=== PATIENT | female | born 1970 | race Caucasian/White ===

== ENCOUNTER 2016-08-10 15:20 | Outpatient (CLI) | payer OTHER | END 2016-08-10 15:21 | disposition home or self-care (01) | DX: Z12.31 Encounter for screening mammogram for malignant neoplasm of breast (principal) ==

== ENCOUNTER 2016-09-24 16:30 | Outpatient (CLI) | payer OTHER | END 2016-09-24 16:31 | disposition home or self-care (01) | DX: R10.2 Pelvic and perineal pain (principal) ==

== ENCOUNTER 2017-05-21 08:02 | Outpatient (CLI) | payer OTHER ==
[2017-05-21 12:57] LABS: BASOPHILS % (AUTO) 0.6 %; EOSINOPHILS # (AUTO) 0.2 10^3/uL (0.0-0.7); EOSINOPHILS % (AUTO) 2.6 %; HCT - HEMATOCRIT 33.3 % (37.0-47.0); HGB - HEMOGLOBIN 10.9 g/dL (12.0-16.0); LYMPHOCYTES # (AUTO) 2.2 10^3/uL (1.5-3.5); LYMPHOCYTES % (AUTO) 31.9 %; MEAN CORPUSCULAR HEMOGLOBIN 24.3 pg (27.0-31.0); MEAN CORPUSCULAR HGB CONC 32.6 g/dL (32.0-36.0); MEAN CORPUSCULAR VOLUME 74.5 fL (81.0-99.0); MEAN PLATELET VOLUME 7.4 fL (7.9-10.8); MONOCYTES # (AUTO) 0.5 10^3/uL (0.0-1.0); NEUTROPHILS # (AUTO) 3.8 10^3/uL (1.5-6.6); NEUTROPHILS % (AUTO) 56.9 %; RED BLOOD COUNT 4.47 10^6/uL (4.20-5.40); RED CELL DISTRIBUTION WIDTH 15.2 % (12.0-15.0); UNCORRECTED WHITE BLOOD COUNT 6.7 x10^3/uL; WHITE BLOOD COUNT 6.7 x10^3/uL (4.8-10.8)
[2017-05-21 13:23] LABS: ALBUMIN/GLOBULIN RATIO 1.3 (1.0-2.2); BILIRUBIN,TOTAL 0.3 mg/dL (0.2-1.0); BUN - BLOOD UREA NITROGEN 15 mg/dL (6-20); CALCIUM 9.3 mg/dL (8.5-10.3); CARBON DIOXIDE - CO2 26 mmol/L (21-32); CHLORIDE 103 mmol/L (101-111); CHOL/HDL RATIO 3.8 (<4.4); CHOLESTEROL 169 mg/dL; CREATININE 0.8 mg/dL (0.4-1.0); GFR - MDRD 77 (>89); GLUCOSE 102 mg/dL (70-100); HDL CHOLESTEROL 44 mg/dL; LDL/HDL RATIO 2.4 (<4.4); POTASSIUM 3.9 mmol/L (3.5-5.0); SODIUM 137 mmol/L (135-145); TRIGLYCERIDES 106 mg/dL; VLDL CHOLESTEROL 21 mg/dL
[2017-05-21 13:36] LABS: HEMOGLOBIN A1C 0.4 g/dL
== END 2017-05-21 08:03 | disposition home or self-care (01) ==
LOC: LAB.WCP 08:02
PROVIDERS: ATTEND Family Medicine
DX: Z00.00 Encounter for general adult medical examination without abnormal findings (principal)
CPT/HCPCS: 36415; 80050; 80061; 83036

== ENCOUNTER 2017-06-14 14:50 | Outpatient (CLI) | payer OTHER | END 2017-06-14 14:51 | disposition home or self-care (01) | LOC: LAB.WCP 14:50 | PROVIDERS: ATTEND Family Medicine | DX: B97.89 Other viral agents as the cause of diseases classified elsewhere (principal) | CPT/HCPCS: 87275; 87276 ==

== ENCOUNTER 2017-08-30 16:45 | Outpatient (CLI) | payer OTHER ==
--- NOTE | 2017-08-31 16:28 | Mammography Report ---
DATE OF SERVICE: 08/30/2017 DIGITAL SCREENING MAMMOGRAM: 08/31/2017 CLINICAL INDICATION: A 46-year-old for screening. COMPARISON: 08/11/2017, 06/08/2017, 05/06/2017, 04/05/2017. TECHNIQUE: Routine CC and MLO projections were obtained of the breasts. FINDINGS: Parenchymal tissue within the breasts is predominantly fatty replaced. There are no dominant masses, suspicious microcalcifications, or secondary signs of malignancy. In comparison to the previous studies, there are no significant changes. IMPRESSION: NO MAMMOGRAPHIC EVIDENCE OF MALIGNANCY. NO SIGNIFICANT INTERVAL CHANGES. RECOMMENDATION: SCREENING MAMMOGRAPHY IS RECOMMENDED ANNUALLY. BIRADS CATEGORY 1 - NEGATIVE. STANDARD QUALIFYING STATEMENTS: 1. This examination was reviewed with the aid of Computed-Aided Detection (CAD). 2. A negative or benign imaging report should not delay biopsy if clinically suspicious findings are present. Consider surgical consultation if warranted. More than 5% of cancers are not identified by imaging. 3. Dense breasts may obscure an underlying neoplasm. TD: 08/31/2017 16:27
== END 2017-08-30 16:46 | disposition home or self-care (01) ==
LOC: DI 16:45
PROVIDERS: ATTEND Family Medicine
DX: Z12.31 Encounter for screening mammogram for malignant neoplasm of breast (principal)
CPT/HCPCS: 77067

== ENCOUNTER 2018-10-27 08:00 | Outpatient (CLI) | payer OTHER | END 2018-10-27 23:59 | disposition home or self-care (01) | LOC: LAB.R 08:00 | PROVIDERS: ATTEND Family Medicine | DX: R31.9 Hematuria, unspecified (principal) | CPT/HCPCS: 87086 ==

== ENCOUNTER 2018-10-28 00:31 | Outpatient (CLI) | payer OTHER ==
--- NOTE | 2018-10-28 02:37 | Ultrasound Report ---
Reason: ABDOMINAL PAIN,RIGHT UPPER QUADRANT Procedure Date: 10/28/2018 Accession Number: [id number] / [id number] Procedure: US - Abdomen Complete CPT Code: FULL RESULT: EXAM: ABDOMEN ULTRASOUND EXAM DATE: 10/28/2018 02:01 AM. CLINICAL HISTORY: ABDOMINAL PAIN,RIGHT UPPER QUADRANT. COMPARISON: None. TECHNIQUE: Real-time scanning was performed with static images obtained. FINDINGS: Liver: There is increased echogenicity of the liver compatible with fatty infiltration. Several cysts are seen within the liver the largest in the left lobe measuring 19 mm x 18 mm x 17 mm. The largest cyst in the right lobe measures 41 mm x 30 mm x 44 mm. There may be a septation within this cyst. 17.6 cm. Main portal vein flow: Hepatopetal. Gallbladder: There is cholelithiasis. The wall thickness measures 2.1 mm. Biliary System: Common bile duct measures 4.3 mm. No intrahepatic or extrahepatic ductal dilatation. Pancreas: Limited visualization of the pancreas. Kidneys: Right: 10.1 cm longitudinally. Normal. No contour-deforming mass, stones, or hydronephrosis. Left: 11.2 cm longitudinally. Normal. No contour-deforming mass, stones, or hydronephrosis. Spleen: 12.3 x 12.7 x 4.6 cm. Volume 376 mL. Echogenic foci seen within the spleen possibly from atherosclerotic calcification within vessels. Findings may also be from calcified granulomas. Aorta and Inferior Vena Cava: Unremarkable. Other: None. IMPRESSION: 1. Diffuse fatty infiltration of the liver. Few hepatic cysts. 2. Cholelithiasis without evidence for cholecystitis. RADIA The call report notification system was initiated by Dr. Kennedy Amos at 02:35 AM on 10/28/2018.
== END 2018-10-28 00:32 | disposition home or self-care (01) ==
LOC: DI 00:31
PROVIDERS: ATTEND Family Medicine
DX: K80.20 Calculus of gallbladder without cholecystitis without obstruction (principal); K76.0 Fatty (change of) liver, not elsewhere classified
CPT/HCPCS: 76700

== ENCOUNTER 2018-11-11 18:15 | Emergency (ER) | payer OTHER ==
[2018-11-11 18:57] LABS: BASOPHILS % (AUTO) 0.4 %; EOSINOPHILS # (AUTO) 0.1 10^3/uL (0.0-0.7); EOSINOPHILS % (AUTO) 0.8 %; HGB - HEMOGLOBIN 12.8 g/dL (12.0-16.0); LYMPHOCYTES # (AUTO) 1.5 10^3/uL (1.5-3.5); LYMPHOCYTES % (AUTO) 19.8 %; MEAN CORPUSCULAR HEMOGLOBIN 25.9 pg (27.0-31.0); MEAN CORPUSCULAR HGB CONC 32.9 g/dL (32.0-36.0); MEAN CORPUSCULAR VOLUME 78.8 fL (81.0-99.0); MEAN PLATELET VOLUME 7.4 fL (7.9-10.8); MONOCYTES # (AUTO) 0.6 10^3/uL (0.0-1.0); MONOCYTES % (AUTO) 7.8 %; NEUTROPHILS # (AUTO) 5.4 10^3/uL (1.5-6.6); NEUTROPHILS % (AUTO) 71.2 %; PLT - PLATELET COUNT 341 10^3/uL (130-450); RED BLOOD COUNT 4.94 10^6/uL (4.20-5.40); RED CELL DISTRIBUTION WIDTH 15.9 % (12.0-15.0); WHITE BLOOD COUNT 7.6 x10^3/uL (4.8-10.8)
[2018-11-11 19:08] LABS: ALBUMIN 4.2 g/dL (3.2-5.5); ALBUMIN/GLOBULIN RATIO 1.1 (1.0-2.2); BILIRUBIN,TOTAL 0.6 mg/dL (0.2-1.0); CALCIUM 9.4 mg/dL (8.5-10.3); CREATININE 0.7 mg/dL (0.4-1.0); TOTAL PROTEIN 7.9 g/dL (6.7-8.2)
--- NOTE | 2018-11-11 19:15 | ED Physician Documentation ---
PD HPI ABD PAIN - Stated complaint Stated Complaint: ABD PX - Chief complaint Chief Complaint: Abd Pain - History obtained from History obtained from: Patient - History of Present Illness Timing - onset: How many weeks ago (2-3) Timing - duration: Weeks (She has had a few weeks of intermittent right upper quadrant abdominal pain more so after eating. It was localized to the right upper quadrant and radiating into the back. She is tender in the area. She has nausea associated with it. She is seen in the office and had a outpatient ultrasound showing gallstones but no signs of wall thickening. She had a surgical consultation referred and she has not yet gotten to the make an appointment. She is waiting on the referral still. Last several days she has had more consistent pain in the right upper quadrant. It was associated with nausea and several episodes of vomiting. She states she had a little loose stool diarrhea 2 days ago and then normal bowel movement today. The pain is stayed localized in that area. She states she had a fever yesterday. She denies any head cold symptoms.) Timing - details: Still present (more consistent pain the past few days), Intermittant Quality: Aching, Sharp, Pain Location: RUQ Radiation: Right flank Improved by: Meds. No: Eating Worsened by: Eating, Moving, Palpation. No: Breathing Associated symptoms: Fever (yesterday), Nausea, Vomiting (Several times in the past few days), Diarrhea (A few loose bowel movements in the last few days), Dysuria (Chronically due to interstitial cystitis without any change in symptoms), Loss of appetite. No: Hematemesis, Constipation, Melena, Hematuria Similar symptoms before: Has not had sx before Recently seen: Clinic (Seen in the clinic by Dr. Brizuela and had outpatient ultrasound showing gallstones) Review of Systems Constitutional: reports: Fever (subjective yesterday and some chills the past 2 days.) Nose: denies: Rhinorrhea / runny nose, Congestion Throat: denies: Sore throat Cardiac: denies: Chest pain / pressure, Palpitations Respiratory: denies: Cough GI: reports: Abdominal Pain (RUQ consistently), Nausea, Vomiting. denies: Abdominal Swelling, Hematemesis, Bloody / black stool : reports: Dysuria (chronic) Skin: denies: Rash, Lesions Neurologic: reports: Generalized weakness (today due to poor intake and feeling dehydrated) PD PAST MEDICAL HISTORY - Past Medical History Past Medical History: Yes Cardiovascular: None Respiratory: None GI: GERD : Other (interstitial cystitis) Psych: Anxiety Other Past Medical History: interstitial cystitis. - Past Surgical History Past Surgical History: Yes /[employer]: section, Oophrectomy HEENT: Tonsil/Adenoidectomy - Present Medications Home Medications: Ambulatory Orders Medication Instructions Recorded Confirmed Esomeprazole Magnesium [Nexium] 20 mg PO BID 10/15/13 02/10/15 Hydrocodone/Acetaminophen 1 - 2 each PO Q6H PRN #15 tablet 09/19/14 02/10/15 [Hydrocodon-Acetaminophen 5-325] Phenazopyridine HCl [Pyridium] 200 mg PO TID 09/19/14 02/10/15 Cephalexin [Keflex] 500 mg PO Q6HR 10 Days capsule 02/10/15 Ondansetron Odt [Zofran] 4 mg TL Q6H PRN #10 tablet 02/10/15 oxyCODONE/ACET 5/325 [Percocet 5 1 each PO Q4-6H PRN #15 tablet 02/10/15 mg/325 mg] Nitrofurantoin Monohyd/M-Cryst 100 mg PO BID 5 Days capsule 09/09/15 [Macrobid 100 mg Capsule] oxyCODONE/ACET 5/325 [Percocet 5 1 - 2 each PO Q6H PRN #12 tablet 09/09/15 mg/325 mg] Ondansetron Odt [Zofran] 4 mg TL Q6H PRN #10 tablet 11/11/18 Oxycodone HCl/Acetaminophen 1 each PO Q6H PRN #15 tablet 11/11/18 [Percocet 5-325 mg Tablet] - Allergies Allergies/Adverse Reactions: Allergies Allergy/AdvReac Type Severity Reaction Status Date / Time No Known Drug Allergies Allergy Verified 11/11/18 18:32 - Living Situation Living Arrangement: reports: At home - Social History Does the pt smoke?: No Smoking Status: Never smoker Does the pt drink ETOH?: Yes Does the pt have substance abuse?: No - Family History Family history: reports: Non contributory - Immunizations Immunizations are current?: Yes - POLST Patient has POLST: No PD ED PE NORMAL - Vitals Vital signs reviewed: Yes - General General: Alert and oriented X 3, Well developed/nourished, Other (She does appear uncomfortable but is able to interact pleasantly.) - HEENT HEENT: PERRL (nonicteric), Ears normal, Pharynx benign. No: Moist mucous membranes - Neck Neck: Supple, no meningeal sign, No adenopathy - Cardiac Cardiac: RRR, No murmur - Respiratory Respiratory: Clear bilaterally - Abdomen Abdomen: Soft, Non distended, Other (Somewhat diminished bowel sounds. She is moderately to significantly tender in the right upper quadrant with localized guarding. There is no percussion tenderness in that area. There is increased pain with deep breathing as I hold the right upper quadrant. There is some referred tenderness to the right side from the left upper quadrant palpation. The lower abdomen is not tender. There is no CVA tenderness.) - Female Female : Deferred - Rectal Rectal: Deferred - Back Back: No CVA TTP - Derm Derm: Normal color, Warm and dry, No rash - Extremities Extremities: No tenderness to palpate, No edema, No calf tenderness / cord - Neuro Neuro: Alert and oriented X 3, No motor deficit, Normal speech Results - Vitals Vitals: Vital Signs - 24 hr 11/11/18 11/11/18 18:28 20:52 Temperature 36.4 C L 36.2 C L Heart Rate 80 79 Respiratory 18 14 Rate Blood Pressure 134/77 H 164/87 H O2 Saturation 97 98 Oxygen O2 Source Room air - Labs Labs: Laboratory Tests 11/11/18 11/11/18 11/11/18 18:48 18:48 21:20 WBC 7.6 RBC 4.94 Hgb 12.8 Hct 38.9 MCV 78.8 L MCH 25.9 L MCHC 32.9 RDW 15.9 H Plt Count 341 MPV 7.4 L Neut # (Auto) 5.4 Lymph # (Auto) 1.5 [place] # (Auto) 0.6 Eos # (Auto) 0.1 Baso # (Auto) 0.0 Absolute Nucleated RBC 0.00 Nucleated RBC % 0.0 Sodium 139 Potassium 3.7 Chloride 100 L Carbon Dioxide 28 Anion Gap 11.0 BUN 15 Creatinine 0.7 Estimated GFR (MDRD) 90 Glucose 101 H Calcium 9.4 Total Bilirubin 0.6 AST 29 ALT 36 Alkaline Phosphatase 68 Total Protein 7.9 Albumin 4.2 Globulin 3.7 Albumin/Globulin Ratio 1.1 Lipase 31 Urine Color YELLOW Urine Clarity CLEAR Urine pH 5.0 Ur Specific [place] 1.025 Urine Protein NEGATIVE Urine Glucose (UA) NEGATIVE Urine Ketones 15 H Urine Occult Blood NEGATIVE Urine Nitrite NEGATIVE Urine Bilirubin NEGATIVE Urine Urobilinogen 0.2 (NORMAL) Ur Leukocyte Esterase NEGATIVE Ur Microscopic Review NOT INDICATED Urine Culture Comments NOT INDICATED - Rads (name of study) RUQ U/S Radiology: Prelim report reviewed (Gallstones are noted without any gallbladder wall thickening or pericholecystic fluid. The common bile duct is normal sized.), See rad report PD MEDICAL DECISION MAKING - ED course Complexity details: considered differential (She has been having intermittent right upper quadrant pain after eating for several weeks. He has been more consistent the last few days associated with nausea and vomiting and some loose stool. She states she was feverish yesterday and chills last couple of days. She is tender in the right upper quadrant and her labs otherwise are normal. This does sound consistent with biliary colic. There is no acute cholecystitis seen. Consultation with surgery by phone and Dr. Stanton will come in to see the patient and discuss options.), d/w patient Departure - Departure Disposition: 01 Home, Self Care Clinical Impression: Cholecystitis Abdominal pain Qualifiers: Abdominal location: right upper quadrant Qualified Code(s): R10.11 - Right upper quadrant pain Cholelithiasis Qualifiers: Cholelithiasis location: gallbladder Cholecystitis presence: without cholecystitis Biliary obstruction: without biliary obstruction Qualified Code(s): K80.20 - Calculus of gallbladder without cholecystitis without obstruction Condition: Stable Record reviewed to determine appropriate education?: Yes Instructions: ED Gallstone W Biliary Colic Follow-Up: Karmen Draper MD [Primary Care Provider] - Juan Antonio Stanton MD [Provider Admit Priv/Credential] - Prescriptions: Ondansetron Odt [Zofran] 4 mg TL Q6H PRN #10 tablet PRN Reason: Nausea / Vomiting Oxycodone HCl/Acetaminophen [Percocet 5-325 mg Tablet] 1 each PO Q6H PRN #15 tablet PRN Reason: pain Comments: Stay well-hydrated. Avoid fatty foods and mostly eat bland diet the next few days. Use Tylenol or ibuprofen if needed for mild pains. Ondansetron if needed for nausea. Add oxycodone if needed for worse pain. Follow-up with Dr. Stanton Wednesday in the clinic; call the office first thing in the morning to set an appointment time and that them know that you were seen in the ER and Dr. Stanton definitely wants to see you on Wednesday. Return sooner if worsening symptoms.
[2018-11-11] MEDS ORDERED: HYDROmorphone 1 MG/ML CARPUJECT IVP STA ×2 (19:23→22:02)
[2018-11-11] MEDS ORDERED: ONDANSETRON 4 MG/2 ML VIAL IVP STA (19:23)
[2018-11-11] MEDS ORDERED: SODIUM CHLORIDE 0.9% 1,000 ML IV ONE (19:23)
--- NOTE | 2018-11-11 20:51 | Ultrasound Report ---
Reason: gallstones; worse pain with fever for 2 days Procedure Date: 11/11/2018 Accession Number: [id number] / [id number] Procedure: US - Abdomen Limited CPT Code: FULL RESULT: EXAM: ABDOMEN ULTRASOUND LIMITED, RUQ EXAM DATE: 11/11/2018 08:34 PM. CLINICAL HISTORY: Cholelithiasis. COMPARISON: None. TECHNIQUE: Real-time scanning was performed with static images obtained. FINDINGS: Liver: The liver is diffusely echogenic in appearance suggesting fibrofatty infiltration. A few scattered cysts are seen measuring up to 4.5 cm in the right hepatic lobe and 2.0 cm and the left hepatic lobe No suspicious lesions or masses are identified. The liver is enlarged measuring 21.4 cm. Main portal vein flow: Hepatopetal. Gallbladder: Multiple gallstones are seen in the gallbladder. There is no gallbladder wall thickening, pericholecystic fluid, or positive sonographic Sims sign. Biliary System: CBD measures 3 mm. No intrahepatic or extrahepatic ductal dilatation. Other: None. IMPRESSION: 1. Cholelithiasis without evidence of cholecystitis or biliary dilation. 2. Mild hepatomegaly, fatty change of the liver, and scattered simple appearing liver cyst. RADIA
[2018-11-11 21:27] LABS: BILIRUBIN,URINE NEGATIVE (NEGATIVE); CLARITY,URINE CLEAR (CLEAR); GLUCOSE, URINE (UA) NEGATIVE (NEGATIVE); KETONES,URINE (UA) 15 mg/dL (NEGATIVE); LEUKOCYTE ESTERASE, URINE NEGATIVE (NEGATIVE); NITRITE,URINE NEGATIVE (NEGATIVE); OCCULT BLOOD,URINE NEGATIVE (NEGATIVE); PROTEIN,URINE NEGATIVE (NEGATIVE); UROBILINOGEN,URINE 0.2 (NORMAL) E.U./dL (NORMAL)
[2018-11-11] MEDS ORDERED: ONDANSETRON ODT 4 MG Prepack 2 TL PRN (22:02)
[2018-11-11] MEDS ORDERED: oxyCODONE/ACET 5/325 Prepack 4 PO STA (22:02)
[2018-11-11] MEDS ORDERED: KETOROLAC 15 MG/ML VIAL IVP STA (22:02)
[2018-11-11 22:29] VITALS: BP 153/84
== END 2018-11-11 22:36 | disposition home or self-care (01) ==
LOC: ED 18:15
DX: K80.10 Calculus of gallbladder with chronic cholecystitis without obstruction (principal)
CPT/HCPCS: 36415; 76705; 80053; 81003; 83690; 85025; 96361; 96374; 96376; 99283; 99284; J1170; 81001; 87086

== ENCOUNTER 2018-11-18 08:45 | Day surgery (SDC) | payer OTHER ==
--- NOTE | 2018-11-18 08:42 | ANESTHESIA ---
Pre-Anesthesia VS, & Labs - Diagnosis biliary cholic - Procedure Laparoscopic cholecystectomy Height 5 ft 6 in Body Mass Index 37.5 - NPO >8 hours - Is Patient ?: No - Lab Results Lab results reviewed: Yes Home Medications and Allergies Home Medications: Ambulatory Orders Alprazolam [Xanax] 0.25 mg PO DAILY PRN 11/15/18 Ibuprofen [Addaprin] 2 - 3 tab PO Q6H PRN 11/15/18 Nortriptyline HCl 100 mg PO QPM 11/15/18 Rabeprazole Sodium [Aciphex] 20 mg PO DAILY 11/15/18 Phenazopyridine HCl [Pyridium] 200 mg PO DAILY PRN 09/19/14 Alprazolam [Xanax] 0.25 mg PO DAILY PRN 11/15/18 Ibuprofen [Addaprin] 2 - 3 tab PO Q6H PRN 11/15/18 Nortriptyline HCl 100 mg PO QPM 11/15/18 Rabeprazole Sodium [Aciphex] 20 mg PO DAILY 11/15/18 Allergies/Adverse Reactions: Allergies Allergy/AdvReac Type Severity Reaction Status Date / Time ketamine AdvReac Hallucinati Verified 11/15/18 10:45 ons Anes History & Medical History - Anesthetic History Anesthesia Complications: reports: No previous complications Family history of Anesthesia Complications: Denies Family history of Malignant Hyperthermia: Denies - Medical History Cardiovascular: reports: None Pulmonary: reports: None Gastrointestinal: reports: GERD, Hiatal hernia, Cholelithiasis Urinary: reports: Other Musculoskeletal: reports: Scoliosis Endocrine/Autoimmune: reports: None Skin: reports: None Smoking Status: Never smoker - Surgical History Eyes Ears Nose Throat (EENT): Tonsil/Adenoidectomy Urologic: Bladder surgery Gynecologic: section, Tubal ligation, Oophrectomy Exam General: Alert, Oriented x3, Cooperative Dental: WNL Mouth Openin Fingerbreadth Neck Mobility: Normal Mallampati classification: II Thyromental Distance: 4-6 cm Respiratory: Lungs clear, Normal breath sounds, No respiratory distress Cardiovascular: Regular rate Neurological: Normal speech Mental/Cognitive Status: Alert/Oriented X3, Normal for patient Cognitive Status: Within normal limits Plan Anesthesia Type: General Consent for Procedure(s) Verified and Reviewed: Yes Code Status: Attempt Resuscitation ASA classification: 2-Mild systemic disease Is this case an emergency?: No
[~2018-11-18 08:45] MED LIST: BUPIVACAINE 0.25%-EPI 1:200000 PF 30 ML VIAL ONE
[2018-11-18] MEDS ORDERED: LACTATED RINGERS 1,000 ML IV ONE ×2 (09:13→11:16)
[2018-11-18 09:16] LABS: HCG UR QUAL NEGATIVE
[2018-11-18] MEDS ORDERED: ceFAZolin 2 GM/50 ML 2 GM/50 ML BAG IV ONE ×2 (09:21→10:33)
[2018-11-18] MEDS ORDERED: BUPIVACAINE 0.25%-EPI 1:200000 PF 30 ML VIAL SUBQ ONE (10:16)
[2018-11-18] MEDS ORDERED: ONDANSETRON 4 MG/2 ML VIAL IVP ONE (10:33)
[2018-11-18] MEDS ORDERED: GLYCOPYRROLATE 1 MG/5 ML VIAL IVP ONE (10:33)
[2018-11-18] MEDS ORDERED: NEOSTIGMINE 1 MG/1 ML 10 ML MDV IVP ONE (10:33)
[2018-11-18] MEDS ORDERED: LIDOCAINE-MPF 2% 5 ML VIAL IM ONE (10:33)
[2018-11-18] MEDS ORDERED: PROPOFOL 200 MG/20 ML VIAL IVP ONE (10:33)
[2018-11-18] MEDS ORDERED: ACETAMINOPHEN 1,000 MG/100 ML 100 ML IV ONE (10:33)
[2018-11-18] MEDS ORDERED: fentaNYL 100 MCG/2 ML VIAL IVP ONE (10:33)
[2018-11-18] MEDS ORDERED: KETOROLAC 30 MG/ML VIAL IVP ONE (10:33)
[2018-11-18] MEDS ORDERED: ROCURONIUM 50 MG/5 ML VIAL IVP ONE (10:33)
[2018-11-18] MEDS ORDERED: HYDROcod/ACETAM 5/325 MG TABLET PO PRN (11:01)
[2018-11-18] MEDS ORDERED: PROMETHAZINE 25 MG/1 ML VIAL ONE (11:17)
[2018-11-18] MEDS ORDERED: SCOPOLAMINE PATCH TOP ONE (11:51)
[2018-11-18] MEDS ORDERED: DEXAMETHASONE 4 MG/ML VIAL ONE (11:51)
[2018-11-18] MEDS ORDERED: HYDROcod/ACETAM 5/325 MG TABLET ONE (12:44)
[2018-11-18 13:02] VITALS: BP 118/84
--- NOTE | 2018-11-20 08:07 | OPERATIVE REPORT ---
DATE OF SERVICE: 11/18/2018 Physician: Juan Antonio Stanton MD SURGEON: Juan Antonio Stanton MD PREOPERATIVE DIAGNOSIS: Symptomatic cholelithiasis. POSTOPERATIVE DIAGNOSIS: Symptomatic cholelithiasis. PROCEDURE PERFORMED: Laparoscopic cholecystectomy. ANESTHESIA: General. INDICATIONS: Patient is a 47-year-old woman who presented to clinic after an ER visit prompted by ri t upper quadrant pain. She was diagnosed with symptomatic cholelithiasis. Patient requested gallb ladder removal to prevent further episodes. PROCEDURE IN DETAIL: The risks and benefits were explained to the patient, and she agreed with the p rocedure. She was taken to the operating room, placed under general anesthesia, and intubated. The abdomen was prepped and draped. A timeout was performed; everyone in the room agreed with the proced ure. We began by making a 12 mm supraumbilical incision. We carried this down into the peritoneal cavity, secured a Priscila trocar in the incision, and insufflated the abdomen to 15 mmHg. We inserted three more 5 mm trocars under vision of the camera, one below the xiphoid process and two below the right c ostal margin. The gallbladder was identified and found to be without sign of inflammation; however, it was moderately distended with palpable gallstones. The gallbladder was grasped and retracted towa rds the head. The fundus was dissected until the critical view was obtained. The cystic duct and ar deysi were doubly clipped and ligated. The gallbladder was then removed off the liver bed using monop olar electricity. The gallbladder was not perforated, and there was no residual bleeding after remov al. The right upper quadrant was then lavaged, clean and dry. The gallbladder was removed and sent to pathology. All four trocars were removed under vision in the camera. The umbilical port site was closed using 0 Vicryl stitch in the fascia. All four incisions were closed after infusing with 30 mL of 0.25% Jeffrey dhara. They were then closed using 4-0 Monocryl and Dermabond. This terminated the procedure. Arron tate tolerated it well. She was extubated in the operating room and taken to recovery in stable condit ion. INSTRUMENT/LAP COUNTS: Correct. SPECIMENS: Gallbladder. COMPLICATIONS: None. PLAN: To go home later today. TD: 11/18/2018 10:59
== END 2018-11-18 08:46 | disposition home or self-care (01) ==
LOC: SDS 08:45
PROVIDERS: ATTEND Surgery
PROC: 0FT44ZZ Resection of Gallbladder, Percutaneous Endoscopic Approach (ICD-10-PCS; principal; 2018-11-18 10:00)
DX: K80.20 Calculus of gallbladder without cholecystitis without obstruction (principal); K21.9 Gastro-esophageal reflux disease without esophagitis; K44.9 Diaphragmatic hernia without obstruction or gangrene; M41.9 Scoliosis, unspecified; N30.10 Interstitial cystitis (chronic) without hematuria; F41.9 Anxiety disorder, unspecified; Z79.891 Long term (current) use of opiate analgesic; Z79.1 Long term (current) use of non-steroidal anti-inflammatories (NSAID)
CPT/HCPCS: 47562; 81025; A9270; J0131; J0690; J3490; J7120

== ENCOUNTER 2019-09-04 15:30 | Outpatient (CLI) | payer OTHER | END 2019-09-04 23:59 | disposition home or self-care (01) | LOC: LAB.R 15:30 | PROVIDERS: ATTEND Physician Assistant Medical | DX: R30.0 Dysuria (principal) | CPT/HCPCS: 87086; 87181 ==

== ENCOUNTER 2019-10-03 08:00 | Outpatient (CLI) | payer OTHER | END 2019-10-03 23:59 | disposition home or self-care (01) | LOC: LAB.R 08:00 | PROVIDERS: ATTEND Physician Assistant Medical | DX: Z79.891 Long term (current) use of opiate analgesic (principal) | CPT/HCPCS: 80361; 80365; 81599 ==

== ENCOUNTER 2019-11-09 07:00 | Outpatient (CLI) | payer OTHER ==
[2019-11-09 11:56] LABS: BASOPHILS % (AUTO) 0.5 %; EOSINOPHILS # (AUTO) 0.1 10^3/uL (0.0-0.7); EOSINOPHILS % (AUTO) 1.9 %; HGB - HEMOGLOBIN 12.9 g/dL (12.0-16.0); LYMPHOCYTES # (AUTO) 2.1 10^3/uL (1.5-3.5); LYMPHOCYTES % (AUTO) 34.5 %; MEAN CORPUSCULAR HEMOGLOBIN 27.7 pg (27.0-31.0); MEAN CORPUSCULAR HGB CONC 32.1 g/dL (32.0-36.0); MEAN CORPUSCULAR VOLUME 86.5 fL (81.0-99.0); MEAN PLATELET VOLUME 9.4 fL (7.9-10.8); MONOCYTES # (AUTO) 0.5 10^3/uL (0.0-1.0); MONOCYTES % (AUTO) 7.6 %; NEUTROPHILS # (AUTO) 3.4 10^3/uL (1.5-6.6); PLT - PLATELET COUNT 317 10^3/uL (130-450); RED BLOOD COUNT 4.65 10^6/uL (4.20-5.40); WHITE BLOOD COUNT 6.2 x10^3/uL (4.8-10.8)
[2019-11-09 12:16] LABS: ALBUMIN/GLOBULIN RATIO 1.1 (1.0-2.2); ALKALINE PHOSPHATASE 56 IU/L (42-121); ALT ALANINE AMINOTRANSFERASE 24 IU/L (10-60); AST ASPARTATE AMINOTRANSFERASE 23 IU/L (10-42); BILIRUBIN,TOTAL 0.6 mg/dL (0.2-1.0); BUN - BLOOD UREA NITROGEN 14 mg/dL (6-20); CALCIUM 8.9 mg/dL (8.5-10.3); CARBON DIOXIDE - CO2 28 mmol/L (21-32); CHLORIDE 105 mmol/L (101-111); CHOL/HDL RATIO 3.7 (<4.4); CHOLESTEROL 218 mg/dL; CREATININE 0.7 mg/dL (0.4-1.0); GLUCOSE 101 mg/dL (70-100); HDL CHOLESTEROL 59 mg/dL; LDL CHOLESTEROL,CALCULATED 134 mg/dL; LDL/HDL RATIO 2.3 (<4.4); SODIUM 138 mmol/L (135-145); TOTAL PROTEIN 7.5 g/dL (6.7-8.2); VLDL CHOLESTEROL 25 mg/dL
[2019-11-09 13:14] LABS: HB2 TOTAL 13.6 g/dL; HEMOGLOBIN A1C 0.44 g/dL; HEMOGLOBIN A1C % 5.1 % (4.6-6.2)
== END 2019-11-09 23:59 | disposition home or self-care (01) ==
LOC: LAB.WCP 07:00
PROVIDERS: ATTEND Physician Assistant Medical
DX: Z00.00 Encounter for general adult medical examination without abnormal findings (principal); E74.39 Other disorders of intestinal carbohydrate absorption; D50.9 Iron deficiency anemia, unspecified
CPT/HCPCS: 36415; 80053; 80061; 83036; 83721; 85025

== ENCOUNTER 2020-02-20 15:27 | Emergency (ER) | payer OTHER ==
[2020-02-20 16:03] LABS: GLUCOSE, URINE (UA) 250 mg/dL (NEGATIVE); KETONES,URINE (UA) TRACE mg/dL (NEGATIVE); LEUKOCYTE ESTERASE, URINE MODERATE (NEGATIVE); NITRITE,URINE POSITIVE (NEGATIVE); OCCULT BLOOD,URINE MODERATE (NEGATIVE); PROTEIN,URINE >=300 mg/dL (NEGATIVE); UROBILINOGEN,URINE >=8.0 E.U./dL (NORMAL)
[2020-02-20 16:13] LABS: BILIRUBIN,URINE NEGATIVE (NEGATIVE); CLARITY,URINE HAZY (CLEAR); ICTOTEST,URINE NEGATIVE
[2020-02-20 16:19] LABS: RBC,URINE TNTC /HPF (0-5); SQUAMOUS EPITHELIAL CELL,UR FEW Squamous (<= Few); WBC CLUMPS,URINE PRESENT
[2020-02-20 16:20] LABS: BACTERIA,URINE Few /HPF (None Seen)
[2020-02-20] MEDS ORDERED: LIDOCAINE 1% 2 ML VIAL MC ONE (16:53)
[2020-02-20] MEDS ORDERED: cefTRIAXone 1 GM VIAL IM STA (16:53)
[2020-02-20] MEDS ORDERED: ONDANSETRON ODT 4 MG TABLET TL STA (17:08)
[2020-02-20] MEDS ORDERED: HYDROmorphone 1 MG/ML CARPUJECT IM STA (17:08)
--- NOTE | 2020-02-20 17:12 | ED Physician Documentation ---
History of Present Illness - Stated complaint Stated Complaint: FEMALE - Chief complaint Chief Complaint: UTI - History obtained from History obtained from: Patient - History of Present Illness Pain level max: 9 Pain level now: 6 - Additonal information Additional information: 49 -year-old female presents to the emergency department with chief complaint of a dysuria. She reports a longstanding history of interstitial cystitis for which she typically takes nortriptyline as well as Pyridium. However over the last 24 hours her pain has worsened as well as having associated increased in frequency and urgency. She denies any flank pain or fevers. Positive Nausea but no vomiting. Past surgical history includes cholecystectomy as well as right ovarian and adnexa removal secondary to an ectopic Review of Systems Constitutional: denies: Fever, Chills Cardiac: denies: Chest pain / pressure, Palpitations GI: reports: Abdominal Pain, Nausea. denies: Vomiting : reports: Dysuria, Frequency. 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, Tubal ligation, Oophrectomy HEENT: Tonsil/Adenoidectomy - Present Medications Home Medications: Ambulatory Orders Medication Instructions Recorded Confirmed oxyCODONE/ACET 5/325 [Percocet 5 1 - 2 each PO Q6H PRN #12 tablet 09/09/15 11/18/18 mg/325 mg] Alprazolam [Xanax] 0.25 mg PO DAILY PRN 11/15/18 11/18/18 Ibuprofen [Addaprin] 2 - 3 tab PO Q6H PRN 11/15/18 11/18/18 Nortriptyline HCl 100 mg PO QPM 11/15/18 11/18/18 Rabeprazole Sodium [Aciphex] 20 mg PO DAILY 11/15/18 11/18/18 Cephalexin [Keflex] 500 mg PO Q8H #21 capsule 02/20/20 Hydrocodone/Acetaminophen 1 each PO BID PRN #4 tablet 02/20/20 [Hydrocodone-Acetamin 5-325 mg] Ondansetron Odt [Zofran] 4 mg TL Q6H PRN #10 tablet 02/20/20 - Allergies Allergies/Adverse Reactions: Allergies Allergy/AdvReac Type Severity Reaction Status Date / Time ketamine AdvReac Hallucinati Verified 02/20/20 15:43 ons - Social History Does the pt smoke?: No Smoking Status: Never smoker Does the pt drink ETOH?: Yes Does the pt have substance abuse?: No - Immunizations Immunizations are current?: Yes - POLST Patient has POLST: No PD ED PE NORMAL - General General: Alert and oriented X 3, Well developed/nourished, Other (crying due to pain) - Cardiac Cardiac: RRR, No murmur - Respiratory Respiratory: No respiratory distress - Abdomen Abdomen: Normal bowel sounds, Soft, Other (suprapubic tenderness. negative mcburneys. no flank or CVA pain) - Female Female : No: Deferred - Extremities Extremities: No: No deformity, No tenderness to palpate - Neuro Neuro: No: Alert and oriented X 3, sports editor 2-12 intact, No motor deficit Eye Opening: Spontaneous Motor: Obeys Commands Verbal: Oriented GCS Score: 15 Results - Vitals Vitals: Vital Signs - 24 hr 02/20/20 15:40 Temperature 36.6 C Heart Rate 106 H Respiratory 18 Rate Blood Pressure 180/90 H O2 Saturation 97 Oxygen O2 Source Room air - Labs Labs: Laboratory Tests 02/20/20 15:53 Urine Color ORANGE Urine Clarity HAZY Urine pH 5.0 Ur Specific [place] 1.025 Urine Protein >=300 H Urine Glucose (UA) 250 H Urine Ketones TRACE Urine Occult Blood MODERATE H Urine Nitrite POSITIVE H Urine Bilirubin NEGATIVE Urine Urobilinogen >=8.0 H Ur Leukocyte Esterase MODERATE H Urine RBC TNTC H Urine WBC >25 H Urine WBC Clumps PRESENT Ur Squamous Epith Cells FEW Squamous Urine Bacteria Few Ur Microscopic Review INDICATED Urine Culture Comments INDICATED PD MEDICAL DECISION MAKING - ED course Complexity details: reviewed results, re-evaluated patient, d/w patient ED course: 49-year-old female presents to the emergency department with chief complaint of increasing urinary symptoms. She does have a history of interstitial cystitis. However her urine is very very suggestive of acute bacterial cystitis. She has nitrite positive as well as having WBC clumps and bacteria. - Patient is given 1 g of ceftriaxone here in the emergency department and will be discharged with a prescription for Keflex to be taken 3 times a day for 1 week. - She has no fevers or flank pain or CVA tenderness therefore I have lower suspicion for an a sending infection or Pyelo. Departure - Departure Disposition: 01 Home, Self Care Clinical Impression: Urinary tract infection Qualifiers: Urinary tract infection type: acute cystitis Hematuria presence: with hematuria Qualified Code(s): N30.01 - Acute cystitis with hematuria Condition: Stable Instructions: ED UTI Cystitis Female Prescriptions: Hydrocodone/Acetaminophen [Hydrocodone-Acetamin 5-325 mg] 1 each PO BID PRN #4 tablet PRN Reason: Pain Cephalexin [Keflex] 500 mg PO Q8H #21 capsule Ondansetron Odt [Zofran] 4 mg TL Q6H PRN #10 tablet PRN Reason: Nausea / Vomiting Comments: Demi you definitely have an infection in your urine. I have given you your first dose of antibiotics here in the emergency department. Please fill the prescription for the oral antibiotics and begin taking tomorrow as directed. I have ordered a very limited number of hydrocodone to help with pain at home. Do not drive if taking this. I would like you to see your doctor in follow-up in at least 1 week to ensure that the infection has resolved. Return here if you have worsening pain, fevers or uncontrolled vomiting
[2020-02-20 17:56] VITALS: BP 148/88
== END 2020-02-20 17:54 | disposition home or self-care (01) ==
LOC: ED 15:27
DX: N30.01 Acute cystitis with hematuria (principal)
CPT/HCPCS: 81001; 87086; 96372; 99283; 99284; J1170; Q0162; 81003

== ENCOUNTER 2020-03-12 07:00 | Outpatient (CLI) | payer OTHER | END 2020-03-12 23:59 | disposition home or self-care (01) | LOC: LAB.R 07:00 | PROVIDERS: ATTEND Physician Assistant Medical | DX: Z79.891 Long term (current) use of opiate analgesic (principal) | CPT/HCPCS: 80307; 80361; 80365; 81599 ==

== ENCOUNTER 2020-04-11 08:00 | Outpatient (CLI) | payer OTHER | END 2020-04-11 23:59 | disposition home or self-care (01) | LOC: LAB.R 08:00 | PROVIDERS: ATTEND Physician Assistant Medical | DX: Z79.891 Long term (current) use of opiate analgesic (principal) | CPT/HCPCS: 80307; 80361; 80365; 81599 ==

== ENCOUNTER 2020-06-05 13:34 | Outpatient (CLI) | payer OTHER ==
--- NOTE | 2020-06-06 13:20 | Mammography Report ---
BILATERAL DIGITAL SCREENING MAMMOGRAM 3D/2D: 06/05/2020 CLINICAL: Routine screening. Comparison is made to exams dated: 08/30/2017 mammogram, 08/10/2016 mammogram - [facility], 06/20/2014 mammogram, 05/05/2012 mammogram, and 04/24/2011 mammogram - Unknown. There are scat tered fibroglandular elements in both breasts. No significant masses, calcifications, or other findings are seen in either breast. There has been no significant interval change. IMPRESSION: NEGATIVE There is no mammographic evidence of malignancy. A 1 year screening mammogram is recommended. This exam was interpreted at Station ID: [id number]. NOTE: For mammograms, a report in lay terms will be sent to the patient. Approximately 15% of breast malignancies will not be visualized mammographically. In the management of a palpable breast mass, a negative mammogram must not discourage biopsy of a clinically suspicious lesion. Electronically Signed By: Catherine maldonado/libby:06/05/2020 15:25:59 ACR BI-RADS Category 1: Negative 3341F PARENCHYMAL PATTERN: (A) - The breast(s) demonstrate(s) scattered fibroglandular densities. BI-RADS CATEGORY: (1) - 1 RECOMMENDATION: (ANNUAL) - Recommend routine annual screening mammography. [id number] 1 year screening LATERALITY: (B)
== END 2020-06-05 13:35 | disposition home or self-care (01) ==
LOC: DI.N 13:34
DX: Z12.31 Encounter for screening mammogram for malignant neoplasm of breast (principal)
CPT/HCPCS: 77063; 77067

== ENCOUNTER 2021-02-21 08:00 | Outpatient (CLI) | payer OTHER ==
[2021-02-21 12:12] LABS: BASOPHILS % (AUTO) 0.4 %; EOSINOPHILS # (AUTO) 0.1 10^3/uL (0.0-0.7); EOSINOPHILS % (AUTO) 1.5 %; HCT - HEMATOCRIT 39.1 % (37.0-47.0); HGB - HEMOGLOBIN 12.7 g/dL (12.0-16.0); LYMPHOCYTES # (AUTO) 1.9 10^3/uL (1.5-3.5); LYMPHOCYTES % (AUTO) 24.9 %; MEAN CORPUSCULAR HGB CONC 32.5 g/dL (32.0-36.0); MEAN CORPUSCULAR VOLUME 86.1 fL (81.0-99.0); MEAN PLATELET VOLUME 9.1 fL (7.9-10.8); MONOCYTES # (AUTO) 0.6 10^3/uL (0.0-1.0); MONOCYTES % (AUTO) 7.7 %; NEUTROPHILS # (AUTO) 4.8 10^3/uL (1.5-6.6); NEUTROPHILS % (AUTO) 65.1 %; PLT - PLATELET COUNT 305 10^3/uL (130-450); RED BLOOD COUNT 4.54 10^6/uL (4.20-5.40); RED CELL DISTRIBUTION WIDTH 13.6 % (12.0-15.0); WHITE BLOOD COUNT 7.4 x10^3/uL (4.8-10.8)
[2021-02-21 12:36] LABS: ALBUMIN 4.1 g/dL (3.2-5.5); ALBUMIN/GLOBULIN RATIO 1.2 (1.0-2.2); ALKALINE PHOSPHATASE 62 IU/L (42-121); ALT ALANINE AMINOTRANSFERASE 26 IU/L (10-60); AST ASPARTATE AMINOTRANSFERASE 24 IU/L (10-42); BILIRUBIN,TOTAL 0.7 mg/dL (0.2-1.0); BUN - BLOOD UREA NITROGEN 9 mg/dL (6-20); CALCIUM 8.9 mg/dL (8.5-10.3); CARBON DIOXIDE - CO2 24 mmol/L (21-32); CHLORIDE 99 mmol/L (101-111); CHOL/HDL RATIO 3.5 (<4.4); CHOLESTEROL 204 mg/dL; CREATININE 0.7 mg/dL (0.4-1.0); GFR - MDRD 89 (>89); GLUCOSE 101 mg/dL (70-100); HDL CHOLESTEROL 58 mg/dL; LDL CHOLESTEROL,CALCULATED 119 mg/dL; LDL/HDL RATIO 2.1 (<4.4); POTASSIUM 3.8 mmol/L (3.5-5.0); SODIUM 132 mmol/L (135-145); TOTAL PROTEIN 7.4 g/dL (6.7-8.2); TRIGLYCERIDES 133 mg/dL; VLDL CHOLESTEROL 27 mg/dL
[2021-02-21 12:45] LABS: THYROID STIMULATING HORMONE 2.11 uIU/mL (0.34-5.60)
== END 2021-02-21 23:59 | disposition home or self-care (01) ==
LOC: LAB.WCP 08:00
PROVIDERS: ATTEND Physician Assistant Medical
DX: Z00.00 Encounter for general adult medical examination without abnormal findings (principal)
CPT/HCPCS: 36415; 80050; 80061; 83721

== ENCOUNTER 2021-02-28 08:00 | Outpatient (CLI) | payer OTHER | END 2021-02-28 23:59 | disposition home or self-care (01) | LOC: LAB.N 08:00 | PROVIDERS: ATTEND Physician Assistant Medical | DX: R39.9 Unspecified symptoms and signs involving the genitourinary system (principal) | CPT/HCPCS: 87086; 87181 ==

== ENCOUNTER 2021-04-06 12:12 | Outpatient (CLI) | payer OTHER | END 2021-04-06 23:59 | disposition home or self-care (01) | LOC: LAB.N 12:12 | PROVIDERS: ATTEND Physician Assistant Medical | DX: R39.9 Unspecified symptoms and signs involving the genitourinary system (principal) | CPT/HCPCS: 87086; 87181 ==

== ENCOUNTER 2021-05-01 07:00 | Outpatient (CLI) | payer OTHER | END 2021-05-01 23:59 | disposition home or self-care (01) | LOC: LAB 07:00 | PROVIDERS: ATTEND Physician Assistant Medical | DX: N30.00 Acute cystitis without hematuria (principal) | CPT/HCPCS: 87086 ==

== ENCOUNTER 2021-08-27 08:00 | Outpatient (CLI) | payer OTHER | END 2021-08-27 23:59 | disposition home or self-care (01) | LOC: LAB.N 08:00 | PROVIDERS: ATTEND Family Medicine | DX: R39.9 Unspecified symptoms and signs involving the genitourinary system (principal) | CPT/HCPCS: 87086; 87181 ==

== ENCOUNTER 2021-09-08 07:57 | Day surgery (SDC) | payer OTHER ==
[2021-09-08] MEDS ORDERED: LACTATED RINGERS 1,000 ML IV ONE ×2 (08:04→09:19)
[2021-09-08] MEDS ORDERED: ONDANSETRON 4 MG/2 ML VIAL IVP PRN (08:43)
--- NOTE | 2021-09-08 08:43 | ANESTHESIA ---
Pre-Anesthesia VS, & Labs - Diagnosis screening - Procedure colonoscopy Vital Signs: Temp Pulse Resp BP Pulse Ox 36.0 C L 85 16 150/94 H 95 09/08/21 08:11 09/08/21 08:11 09/08/21 08:11 09/08/21 08:11 09/08/21 08:11 Height: 5 ft 6 in Weight (kg): 117 kg Body Mass Index: 41.6 BMI Classification: Morbidly Obese - NPO >8 hours - Is Patient ?: No Home Medications and Allergies Home Medications: Ambulatory Orders Esomeprazole Magnesium [Nexium] 40 mg PO DAILY 09/08/21 traMADol [Ultram] 50 mg PO Q4-6H 09/08/21 Ibuprofen [Addaprin] 2 - 3 tab PO Q6H PRN 11/15/18 Nortriptyline HCl 100 mg PO QPM 11/15/18 Esomeprazole Magnesium [Nexium] 40 mg PO DAILY 09/08/21 traMADol [Ultram] 50 mg PO Q4-6H 09/08/21 Allergies/Adverse Reactions: Allergies Allergy/AdvReac Type Severity Reaction Status Date / Time ketamine AdvReac Hallucinati Verified 09/08/21 08:32 ons Anes History & Medical History - Anesthetic History Anesthesia Complications: reports: Post-Operative Nausea/Vomiting - Medical History Cardiovascular: reports: None Pulmonary: reports: None Gastrointestinal: reports: None Urinary: reports: Chronic bladder infection, Other Musculoskeletal: reports: None Endocrine/Autoimmune: reports: None Skin: reports: None Smoking Status: Never smoker History of Cancer?: No - Surgical History General: reports: Cholecystectomy Eyes Ears Nose Throat (EENT): reports: Tonsil/Adenoidectomy Urologic: reports: Bladder surgery Gynecologic: reports: section, Oophrectomy Exam General: Alert, Oriented x3 Dental: WNL Mouth Opening: Greater than 4 Fingerbreadths Neck Mobility: Normal Mallampati classification: II Respiratory: Lungs clear Cardiovascular: Regular rate, Normal S1, Normal S2 Plan Anesthesia Type: Total IV Consent for Procedure(s) Verified and Reviewed: Yes Code Status: Attempt Resuscitation ASA classification: 2-Mild systemic disease Is this case an emergency?: No
[2021-09-08] MEDS ORDERED: ONDANSETRON 4 MG/2 ML VIAL ONE (08:47)
[2021-09-08] MEDS ORDERED: PROPOFOL 500 MG/50 ML 500 MG/50 ML VIAL ONE (09:15)
[2021-09-08 09:39] VITALS: BP 125/76
--- NOTE | 2021-09-08 12:35 | ANESTHESIA POST OP EVALUATION ---
Anesthesia Post Eval - Post Anesthesia Eval Vitals: Last Vital Signs Temp 36.3 C L 09/08/21 09:35 Pulse 85 09/08/21 09:35 Resp 16 09/08/21 09:35 BP 125/76 09/08/21 09:35 Pulse Ox 96 09/08/21 09:35 CV Function Including HR & BP: Stable Pain Control: Satisfactory Nausea & Vomiting: Negative Mental Status: Baseline Respiratory Status: Airway Patent Hydration Status: Satisfactory Anesthesia Complications: None
== END 2021-09-08 07:58 | disposition home or self-care (01) ==
LOC: SDS 07:57
PROVIDERS: ATTEND Surgery
PROC: 0DBN8ZZ Excision of Sigmoid Colon, Via Natural or Artificial Opening Endoscopic (ICD-10-PCS; principal; 2021-09-08 09:00)
DX: Z12.11 Encounter for screening for malignant neoplasm of colon (principal); D12.5 Benign neoplasm of sigmoid colon; K57.30 Diverticulosis of large intestine without perforation or abscess without bleeding; E66.01 Morbid (severe) obesity due to excess calories; Z68.41 Body mass index [BMI] 40.0-44.9, adult; F41.9 Anxiety disorder, unspecified; Z79.891 Long term (current) use of opiate analgesic
CPT/HCPCS: 45385; J7120

== ENCOUNTER 2021-11-03 17:56 | Outpatient (CLI) | payer OTHER ==
--- NOTE | 2021-11-04 11:33 | XRAY Report ---
PROCEDURE: Foot 2 View RT INDICATIONS: LACERATION OF R FOOT, R/O FOREIGN BODY TECHNIQUE: There are 2 views of the foot were acquired. COMPARISON: None FINDINGS: Bones: No fractures or dislocations. No suspicious bony lesions. Calcaneal spur is present. Soft tissues: No tibiotalar joint effusion. Achilles tendon appears normal. No radiopaque foreign bodies. IMPRESSION: No radiopaque foreign bodies. Reviewed by: Ruth Ann Schulz MD on 11/04/2021 11:31 AM PDT Approved by: Ruth Ann Schulz MD on 11/04/2021 11:31 AM PDT Station ID: [id number]
== END 2021-11-03 23:59 | disposition home or self-care (01) ==
LOC: DI.N 17:56
PROVIDERS: ATTEND Registered Nurse
DX: S91.311A Laceration without foreign body, right foot, initial encounter (principal)

== ENCOUNTER 2021-11-13 08:00 | Outpatient (CLI) | payer OTHER | END 2021-11-13 23:59 | disposition home or self-care (01) | LOC: LAB.N 08:00 | PROVIDERS: ATTEND Physician Assistant Medical | DX: N30.00 Acute cystitis without hematuria (principal) | CPT/HCPCS: 87086; 87181 ==

== ENCOUNTER 2022-04-06 08:00 | Outpatient (CLI) | payer OTHER | END 2022-04-06 23:59 | disposition home or self-care (01) | LOC: LAB.N 08:00 | PROVIDERS: ATTEND Nurse Practitioner | DX: N39.0 Urinary tract infection, site not specified (principal) | CPT/HCPCS: 87086 ==

== ENCOUNTER 2022-04-28 08:00 | Outpatient (CLI) | payer OTHER ==
[2022-04-28 22:21] LABS: BACTERIAL VAGINOSIS DNA NEGATIVE (NEGATIVE); CANDIDA GLABRATA DNA NEGATIVE (NEGATIVE); CANDIDA GROUP DNA POSITIVE (NEGATIVE); CANDIDA KRUSEI DNA NEGATIVE (NEGATIVE); TRICHOMONAS VAGINALIS DNA NEGATIVE (NEGATIVE)
== END 2022-04-28 23:59 | disposition home or self-care (01) ==
LOC: LAB.N 08:00
PROVIDERS: ATTEND Physician Assistant
DX: R30.0 Dysuria (principal)
CPT/HCPCS: 81514; 87086

== ENCOUNTER 2022-05-20 15:07 | Outpatient (CLI) | payer OTHER ==
--- NOTE | 2022-05-21 12:52 | Mammography Report ---
BILATERAL DIGITAL SCREENING MAMMOGRAM 3D/2D: 05/20/2022 CLINICAL: Routine screening. Comparison is made to exams dated: 06/05/2020 mammogram, 08/30/2017 mammogram, 08/10/2016 mammogram - [facility], 06/20/2014 mammogram, 05/05/2012 mammogram, and 04/24/2011 mammogram - Un known. There are scattered areas of fibroglandular density in both breasts (category b / 25%-50% glandular t issue). There is a new 0.8 cm oval equal density focal asymmetry in the left breast at 12 o'clock middle dept h. No other significant masses, calcifications, or other findings are seen in either breast. IMPRESSION: INCOMPLETE: NEEDS ADDITIONAL IMAGING EVALUATION The new 0.8 cm oval equal density focal asymmetry in the left breast resembles a cyst and is indeterm inate. Additional views with possible ultrasound are recommended. Based on the Tyrer Cuzick model (a risk assessment model) the patients lifetime risk is 13.6% and he r 10 year risk is 3.4%. According to the ACR, ACS, and NCCN guidelines, an annual breast MRI exam yumiko ng with mammogram is recommended if the patients lifetime risk is 20% or greater. This exam was interpreted at Station ID: [id number]. NOTE: For mammograms, a report in lay terms will be sent to the patient. Approximately 15% of breast malignancies will not be visualized mammographically. In the management of a palpable breast mass, a negative mammogram must not discourage biopsy of a clinically suspicious lesion. Electronically Signed By: Danny Nichole M.D. aty/:05/21/2022 08:03:18 ACR BI-RADS Category 0: Incomplete 3340F PARENCHYMAL PATTERN: (A) - The breast(s) demonstrate(s) scattered fibroglandular densities. BI-RADS CATEGORY: (0) - 0 Mammo and [place] [id number] Immediate follow-up LATERALITY: (L)
== END 2022-05-20 15:08 | disposition home or self-care (01) ==
LOC: DI.N 15:07
PROVIDERS: ATTEND Physician Assistant Medical
DX: Z12.31 Encounter for screening mammogram for malignant neoplasm of breast (principal); R92.8 Other abnormal and inconclusive findings on diagnostic imaging of breast

== ENCOUNTER 2022-07-01 07:48 | Outpatient (CLI) | payer OTHER ==
--- NOTE | 2022-07-02 10:01 | Mammography Report ---
UNILATERAL LEFT DIGITAL DIAGNOSTIC MAMMOGRAM 3D/2D: 07/01/2022 CLINICAL: Patient returns today to evaluate a focal asymmetry in the left breast. Comparison is made to exams dated: 05/20/2022 mammogram, 06/05/2020 mammogram, 08/30/2017 mammogram, a nd 08/10/2016 mammogram - [facility]. There are scattered areas of fibroglandular density in the left breast (category b / 25%-50% glandula r tissue). There is a 0.8 cm oval focal asymmetry in the left breast at 12 o'clock middle depth. No other significant masses or calcifications are seen in the breast. IMPRESSION: INCOMPLETE: NEEDS ADDITIONAL IMAGING EVALUATION The 0.8 cm oval focal asymmetry in the left breast resembles a cyst and is indeterminate. A targeted ultrasound is recommended and will immediately follow. Based on the Tyrer Cuzick model (a risk assessment model) the patients lifetime risk is 13.6% and he r 10 year risk is 3.4%. According to the ACR, ACS, and NCCN guidelines, an annual breast MRI exam yumiko ng with mammogram is recommended if the patients lifetime risk is 20% or greater. This exam was interpreted at Station ID: [id number]. NOTE: For mammograms, a report in lay terms will be sent to the patient. Approximately 15% of breast malignancies will not be visualized mammographically. In the management of a palpable breast mass, a negative mammogram must not discourage biopsy of a clinically suspicious lesion. Electronically Signed By: Victor Hugo Butt M.D. slc/:07/01/2022 08:24:54 ACR BI-RADS Category 0: Incomplete 3340F PARENCHYMAL PATTERN: (A) - The breast(s) demonstrate(s) scattered fibroglandular densities. BI-RADS CATEGORY: (0) - 0 Ultrasound [id number] Immediate follow-up LATERALITY: (B)
--- NOTE | 2022-07-02 10:01 | Ultrasound Report ---
LIMITED ULTRASOUND OF LEFT BREAST: 07/01/2022 CLINICAL: Patient returns today to evaluate a focal asymmetry in the left breast. Comparison is made to exams dated: 07/01/2022 mammogram, 05/20/2022 mammogram, 06/05/2020 mammogram, 08/30/2017 mammogram, and 08/10/2016 mammogram - [facility]. Color flow and real-time ultrasound of the left breast 12 o'clock region were performed. Larson scale images of the real-time examination were reviewed. There is a benign 0.8 cm x 0.7 cm x 0.5 cm oval simple cyst in the left breast at 12 o'clock middle d epth 7 cm from the nipple. This oval simple cyst is anechoic. Color flow imaging demonstrates that there is no vascularity present. IMPRESSION: BENIGN There is no sonographic evidence of malignancy. The 0.8 cm simple cyst in the left breast is benign. A 1 year screening mammogram is recommended. Exam findings were conveyed to the patient. This exam was interpreted at Station ID: [id number]. Electronically Signed By: Victor Hugo Butt M.D. slc/:07/01/2022 13:02:36 Ultrasound BI-RADS: 2 Benign BI-RADS CATEGORY: (2) - 2 RECOMMENDATION: (ANNUAL) - Recommend routine annual screening mammography. [id number] 1 year screening LATERALITY: (B)
== END 2022-07-01 07:49 | disposition home or self-care (01) ==
LOC: DI 07:48
PROVIDERS: ATTEND Physician Assistant Medical
DX: N60.02 Solitary cyst of left breast (principal)

== ENCOUNTER 2023-03-02 08:00 | Outpatient (CLI) | payer OTHER | END 2023-03-02 23:59 | disposition home or self-care (01) | LOC: LAB.WCP 08:00 | PROVIDERS: ATTEND Physician Assistant Medical | DX: N39.0 Urinary tract infection, site not specified (principal) | CPT/HCPCS: 87077; 87086; 87181 ==

== ENCOUNTER 2023-06-24 12:00 | Outpatient (CLI) | payer OTHER ==
--- NOTE | 2023-06-24 16:44 | XRAY Report ---
PROCEDURE: Ankle 3 View LT INDICATIONS: LEFT ANKLE JOINT PAIN TECHNIQUE: 3 views of the ankle were acquired. COMPARISON: None. FINDINGS: Bones: No fractures or dislocations. Ankle mortise is normally aligned. No suspicious bony lesions . Soft tissues: No tibiotalar joint effusion. Achilles tendon appears normal. IMPRESSION: No acute fracture. No osseous lesion. If symptoms and/or clinical suspicion for patholog y continue, further assessment with repeat plain films, or advanced imaging (e.g., CT, MRI, or bone s can) is recommended for further assessment. Reviewed by: Angelika Gonzalez MD on 06/24/2023 4:42 PM PST Approved by: Angelika Gonzalez MD on 06/24/2023 4:42 PM PST Station ID: [id number]
== END 2023-06-24 12:15 | disposition home or self-care (01) ==
LOC: DI.N 12:00
PROVIDERS: ATTEND Registered Nurse
DX: M25.572 Pain in left ankle and joints of left foot (principal)

== ENCOUNTER 2023-08-09 15:14 | Outpatient (CLI) | payer OTHER ==
--- NOTE | 2023-08-10 15:36 | Mammography Report ---
BILATERAL DIGITAL SCREENING MAMMOGRAM 3D/2D: 08/09/2023 CLINICAL: Routine screening. Comparison is made to exams dated: 07/01/2022 ultrasound, 07/01/2022 mammogram, 05/20/2022 mammogram, 06/05/2020 mammogram, 08/30/2017 mammogram, and 08/10/2016 mammogram - [facility]. There are scattered areas of fibroglandular density in both breasts (category b / 25%-50% glandular t issue). No significant masses, calcifications, or other findings are seen in either breast. There has been no significant interval change. IMPRESSION: NEGATIVE There is no mammographic evidence of malignancy. A 1 year screening mammogram is recommended. Based on the Tyrer Cuzick model (a risk assessment model) the patients lifetime risk is 13.9% and her 10 year risk is 3.6%. According to the ACR, ACS, and NCCN guidelines, an annual breast MRI exam marine g with mammogram is recommended if the patients lifetime risk is 20% or greater. This exam was interpreted at Station ID: [id number]. NOTE: For mammograms, a report in lay terms will be sent to the patient. Approximately 15% of breast malignancies will not be visualized mammographically. In the management of a palpable breast mass, a negative mammogram must not discourage biopsy of a clinically suspicious lesion. Electronically Signed By: Danny melchor/libby:08/10/2023 07:43:52 ACR BI-RADS Category 1: Negative 3341F PARENCHYMAL PATTERN: (A) - The breast(s) demonstrate(s) scattered fibroglandular densities. BI-RADS CATEGORY: (1) - 1 Mammogram [id number] 1 year screening LATERALITY: (B)
== END 2023-08-09 15:15 | disposition home or self-care (01) ==
LOC: DI.N 15:14
DX: Z12.31 Encounter for screening mammogram for malignant neoplasm of breast (principal); R92.323 Mammographic fibroglandular density, bilateral breasts